=== PATIENT | female | born 1960 | race Caucasian/White ===

== ENCOUNTER 2017-05-23 13:36 | Emergency (ER) | payer OTHER ==
[2017-05-23] MEDS ORDERED: Ondansetron HCl/PF 4 MG/2 ML Vial ONE ×2 (15:40→15:41)
--- NOTE | 2017-05-23 15:42 | RAD ---
EXAM: TWO VIEW SOFT TISSUE NECK 05/23/17 HISTORY: Patient was eating meat and felt a sensation of food getting stuck. Sensation has since passed. COMPARISON: None. FINDINGS: Two views soft tissue neck does not demonstrate prevertebral soft tissue swelling. Calcification of t hyroid cartilage noted. There is a punctate calcification at the C3 level, which appears to be anteri or to the esophagus and may represent a soft tissue calcification. No radiopaque foreign bodies in th e esophagus/aerodigestive tract. IMPRESSION: No evidence of a radiopaque foreign body. Results of the study discussed with Dr. Hicmkan, 05/23/17 kate agosto 3:35 p.m. Code CR POS: QUIANA
== END 2017-05-23 16:42 | disposition home or self-care (01) ==
LOC: ERS 13:36
DX: T17.228A Food in pharynx causing other injury, initial encounter (principal); E11.9 Type 2 diabetes mellitus without complications; I10 Essential (primary) hypertension; F32.9 Major depressive disorder, single episode, unspecified
CPT/HCPCS: 70360; 96374; 96375; J1610; J2405

== ENCOUNTER 2018-02-10 09:06 | Outpatient (CLI) | payer OTHER | END 2018-02-10 09:07 | disposition home or self-care (01) | LOC: BICMAMMO 09:06 | PROVIDERS: ATTEND Family Medicine | DX: Z12.31 Encounter for screening mammogram for malignant neoplasm of breast (principal) | CPT/HCPCS: 77063; 77067 ==

== ENCOUNTER 2018-05-12 08:09 | Outpatient (CLI) | payer OTHER ==
[2018-05-12 09:13] LABS: Hemoglobin 13.8 g/dL (12.0-16.0); Mean Corpuscular HGB CONC 31.4 g/dL (32.0-36.0); Mean Corpuscular Hemoglobin 27.8 pg (27.0-31.0); Mean Corpuscular Volume 88.7 fL (78.0-98.0); Mean Platelet Volume 7.5 fL (7.4-10.4); Platelet Count 281 thou/uL (130-400); RBC Distribution Width 12.6 % (11.5-14.5); Red Blood Cell (RBC) Count 4.97 mill/uL (4.20-5.40); White Blood Cell (WBC) Count 6.4 thou/uL (4.8-10.8)
== END 2018-05-12 08:10 | disposition home or self-care (01) ==
LOC: LABBT 08:09
PROVIDERS: ATTEND Orthopaedic Surgery
DX: Z01.812 Encounter for preprocedural laboratory examination (principal); G56.02 Carpal tunnel syndrome, left upper limb; G56.22 Lesion of ulnar nerve, left upper limb
CPT/HCPCS: 85027

== ENCOUNTER 2018-05-14 05:43 | Day surgery (SDC) | payer OTHER ==
[2018-05-14] MEDS ORDERED: CEFAZOLIN 2 GM/50 ML BAG ONE (06:32)
[2018-05-14] MEDS ORDERED: Midazolam HCl 2 mg/2 ml Vial ONE (06:43)
[2018-05-14] MEDS ORDERED: Fentanyl 100 MCG/2 ML VIAL ONE ×4 (06:43→09:04)
[2018-05-14] MEDS ORDERED: Lidocaine 1% w/Epinephrine 1:200K 30 ML VIAL ONE (06:54)
--- NOTE | 2018-05-14 07:12 | HP ---
CHIEF COMPLAINT: Left wrist and elbow numbness and tingling. HISTORY OF PRESENT ILLNESS: Ms. Haynes is a pleasant 58-year-old female who is right hand dominant. She has a history of right carpal tunnel release. The patient is RHD. She administrative assist. The patient has pain in her small and ring fingers for about 7 years, progressively getting worse. PAST MEDICAL HISTORY: Headache, tenderness, carpal tunnel surgery, cholelithiasis, gastroesophageal reflux, depression, Staph infections, diabetes. PAST SURGICAL HISTORY: Tubal, carpal tunnel release, lap for ovarian cyst, appendectomy, cholecystectomy. MEDICATIONS: Atorvastatin, Yadira, Zulema-D, glucosamine, metformin, multivitamins, Prevagen, telmisartan and verapamil. ALLERGIES: VERSED. SOCIAL HISTORY: Occasional alcohol, no drug use, no history of smoking. The patient works for a [employer]. PHYSICAL EXAMINATION: GENERAL: Alert female in no acute distress, resting comfortably in bed. LEFT WRIST: The patient shows no significant having open wounds. Full range of motion. The patient has strengths, positive Tinel's at the carpal tunnel, positive Tinel's at the elbow. The patient has sensation diminished in the median and ulnar distributions. She has no wounds. She has nerve conduction studies positive for carpal tunnel and cubital tunnel. IMPRESSION: left Carpal tunnel, cubital tunnel. ASSESSMENT AND PLAN: The patient will be taken to the OR for open carpal tunnel and cubital tunnel release. I discussed with patient the risks and benefits of surgery to include pain, scar, bleeding, infection, damage to vital structures to include nerves, arteries and tendons, decreased range of motion or strength, incomplete resolution of symptoms, loss of life or limb. She understands risks and benefits. The patient will be taken back to the operating suite for open carpal tunnel and cubital tunnel release. Will place her in a long arm splint postop. BALJEET
[2018-05-14] MEDS ORDERED: Promethazine HCl 25 MG/ML VIAL IM/IV PRN (08:44)
[2018-05-14] MEDS ORDERED: Non-Formulary Medication 1 EACH PO PRN (08:44)
[2018-05-14] MEDS ORDERED: Ondansetron HCl/PF 4 MG/2 ML Vial IVP PRN (08:44)
[2018-05-14] MEDS ORDERED: Ketorolac Tromethamine 30 MG/ML VIAL ONE (09:11)
--- NOTE | 2018-05-14 09:21 | OP ---
DATE OF PROCEDURE: 05/14/2018 PREOPERATIVE DIAGNOSES: 1. Left cubital tunnel syndrome. 2. Left carpal tunnel syndrome. POSTOPERATIVE DIAGNOSES: 1. Left cubital tunnel syndrome. 2. Left carpal tunnel syndrome. PROCEDURE PERFORMED: 1. Left open cubital tunnel release. 2. Left open carpal tunnel release. 3. Long arm splint. STAFF: Alirio Boyd M.D. RESEARCH ATTORNEY: None. ANESTHESIA: Adams. The patient received LMA with 18 mL of 1% lidocaine with epinephrine. ESTIMATED BLOOD LOSS: 20 mL. TOURNIQUET TIME: 31 minutes at 250 mmHg. ANTIBIOTICS: Ancef 2 grams. COMPLICATIONS: None. HISTORY OF PRESENT ILLNESS: Ms. Haynes is a 58-year-old female who presented to me. She is right hand dominant, she is presenting with a nerve conduction study positive for cubital tunnel and carpal tunn el syndrome. The patient had failed conservative measures and desired operative release. I discusse d with the patient the risks and benefits of surgery to include pain, scar, bleeding, infection, jose enrique ge to vital structures, decreased range of motion or strength, continued pain despite surgical dimens ion, damage to nerves, loss of life or limb, decreased range of motion, function or strength. She un derstood these risks and benefits and elected to proceed. PROCEDURE IN DETAIL: Timeout was performed designating the patient's left upper extremity as the ope rative site based on sight, consents, and markings. After timeout, the patient's left upper extremit y was prepped and draped in sterile fashion. Incision made over the patient's medial epicondyle and the olecranon down through skin. Dissection was made down to the triceps. We then exposed and found the ulnar nerve from proximal to distal tract. There was an anconeus epitrochlearis muscle that was transected which was likely the culprit of her symptoms. After that we released it distally through the patient's FCU, ensuring there was proximally and distally dissected, ensured that it was release d. It showed no signs of compression. We then washed, I closed with 2-0 and 3-0 nylon. We then mov ed to the hand. We pulled the hand out. Based on Mujica's cardinal line in the fourth ray made a di ssection down through skin just distal to the proximal crease down through skin through the fascia th rough the palmaris brevis down to the transverse carpal ligament. The patient had a complete release of the nerve. I saw it throughout its course. We then washed, let the tourniquet down, controlled bleeding, closed with 4-0 nylon, injected 4 mL of lidocaine 1% epinephrine into the hand. I injected 14 into the elbow. We placed the patient in a long arm splint. The patient will be sent home. Follow up in 10-14 days, remove the splint in 7 days. She has Leola for pain relief.
[2018-05-14] MEDS ORDERED: Ketorolac Tromethamine 30 MG/ML VIAL IM/IV PRN (09:27)
[2018-05-14] MEDS ORDERED: HYDROcodone/Acetaminophen 5/325 mg Tablet ONE ×2 (09:59→10:11)
== END 2018-05-14 11:45 | disposition home or self-care (01) ==
LOC: SDC 05:43
PROVIDERS: ATTEND Orthopaedic Surgery
PROC: 01N40ZZ Release Ulnar Nerve, Open Approach (ICD-10-PCS; principal; 2018-05-14)
PROC: 01N50ZZ Release Median Nerve, Open Approach (ICD-10-PCS; principal; 2018-05-14)
DX: G56.22 Lesion of ulnar nerve, left upper limb (principal); G56.02 Carpal tunnel syndrome, left upper limb; F32.9 Major depressive disorder, single episode, unspecified; E11.9 Type 2 diabetes mellitus without complications; K21.9 Gastro-esophageal reflux disease without esophagitis; Z79.84 Long term (current) use of oral hypoglycemic drugs; Z79.899 Other long term (current) drug therapy; Z88.8 Allergy status to other drugs, medicaments and biological substances; Z98.890 Other specified postprocedural states
CPT/HCPCS: 96374; 96375; J1885; J2250; J3010

== ENCOUNTER 2019-02-19 08:06 | Outpatient (CLI) | payer OTHER ==
--- NOTE | 2019-02-23 06:46 | MMO ---
Bilateral MAMMO Bilat Screen [facility]. CLINICAL HISTORY: Patient is 58 years old and is seen for screening. The patient has no family history of breast cancer. The patient has no personal history of cancer. VIEWS: The views performed were: bilateral craniocaudal with tomosynthesis and bilateral mediolateral oblique with tomosynthesis. FILMS COMPARED: The present examination has been compared to prior imaging studies performed at [facility] on 12/06/2014, 12/27/2015, 02/06/2017 and 02/10/2018. MAMMOGRAM FINDINGS: The breasts are heterogeneously dense, which could obscure a lesion on mammography. There are benign appearing calcifications seen in both breasts. There are no suspicious masses, suspicious calcifications, or new areas of architectural distortion. IMPRESSION: THERE IS NO MAMMOGRAPHIC EVIDENCE OF MALIGNANCY. A ROUTINE FOLLOW-UP MAMMOGRAM IN 1 YEAR IS RECOMMENDED. THE RESULTS OF THIS EXAM WERE SENT TO THE PATIENT. ACR BI-RADS Category 2 - Benign finding MAMMOGRAPHY NOTE: 1. A negative mammogram report should not delay a biopsy if a dominant of clinically suspicious mass is present. 2. Approximately 10% to 15% of breast cancers are not detected by mammography. 3. Adenosis and dense breasts may obscure an underlying neoplasm. Reported by: TRAN LEIJA MD Electonically Signed: [id number]
== END 2019-02-19 08:07 | disposition home or self-care (01) ==
LOC: BICMAMMO 08:06
PROVIDERS: ATTEND Family Medicine
DX: Z12.31 Encounter for screening mammogram for malignant neoplasm of breast (principal)
CPT/HCPCS: 77063; 77067

== ENCOUNTER 2020-03-29 07:47 | Outpatient (CLI) | payer OTHER ==
--- NOTE | 2020-03-29 08:23 | MMO ---
Bilateral MAMMO Bilat Screen [facility] CLINICAL HISTORY: Patient is 59 years old and is seen for screening. The patient has no family history of breast cancer. The patient has no personal history of cancer. VIEWS: The views performed were: bilateral craniocaudal with tomosynthesis and bilateral mediolateral oblique with tomosynthesis. FILMS COMPARED: The present examination has been compared to prior imaging studies performed at [facility] on 12/27/2015, 02/06/2017, 02/10/2018 and 02/19/2019. This study has been interpreted with the assistance of computer-aided detection. MAMMOGRAM FINDINGS: The breasts are heterogeneously dense, which could obscure a lesion on mammography. There are no suspicious masses, suspicious calcifications, or new areas of architectural distortion. IMPRESSION: THERE IS NO MAMMOGRAPHIC EVIDENCE OF MALIGNANCY. A ROUTINE FOLLOW-UP MAMMOGRAM IN 1 YEAR IS RECOMMENDED. THE RESULTS OF THIS EXAM WERE SENT TO THE PATIENT. ACR BI-RADS Category 1 - Negative MAMMOGRAPHY NOTE: 1. A negative mammogram report should not delay a biopsy if a dominant of clinically suspicious mass is present. 2. Approximately 10% to 15% of breast cancers are not detected by mammography. 3. Adenosis and dense breasts may obscure an underlying neoplasm. Reported by: TIMUR LEE MD Electonically Signed: [id number]
== END 2020-03-29 07:48 | disposition home or self-care (01) ==
LOC: BICMAMMO 07:47
PROVIDERS: ATTEND Family Medicine
DX: Z12.31 Encounter for screening mammogram for malignant neoplasm of breast (principal)
CPT/HCPCS: 77063; 77067

== ENCOUNTER 2020-10-29 16:30 | Observation (INO) | payer OTHER ==
[2020-10-29 17:32] LABS: #Monocytes 0.7 thou/uL (0.11-0.59); #Neutrophils 4.7 thou/uL (1.40-6.50); %Basophils 0.6 % (0.0-1.0); %Eosinophils 0.5 % (0.0-10.0); %Lymphocytes 26.5 % (21.0-51.0); %Monocytes 9.7 % (0.0-10.0); %Neutrophils 62.7 % (42.0-75.0); Hemoglobin 13.2 g/dL (12.0-16.0); Mean Corpuscular HGB CONC 32.8 g/dL (32.0-36.0); Mean Corpuscular Hemoglobin 29.2 pg (27.0-31.0); Mean Corpuscular Volume 88.9 fL (78.0-98.0); Mean Platelet Volume 7.4 fL (7.4-10.4); Platelet Count 232 thou/uL (130-400); RBC Distribution Width 12.9 % (11.5-14.5); Red Blood Cell (RBC) Count 4.51 mill/uL (4.20-5.40); White Blood Cell (WBC) Count 7.5 thou/uL (4.8-10.8)
[2020-10-29] MEDS ORDERED: Nitroglycerin 2% Ointment 1 INCH/1 GM Packet ONE (17:55)
[2020-10-29] MEDS ORDERED: Aspirin Chewable 81 MG TAB ONE (17:55)
[2020-10-29 17:56] LABS: ALT (SGPT) 13 U/L (8-55); AST (SGOT) 16 U/L (5-34); Albumin 4.3 g/dL (3.4-4.8); Alkaline Phosphatase 73 U/L (40-110); Anion Gap 16 mmol/L (10-20); BUN (Urea Nitrogen) 14 mg/dL (9.8-20.1); Bilirubin, Total 0.5 mg/dL (0.2-1.2); Calc. Creatinine Clearance 0 mL/min (70-130); Calcium 9.1 mg/dL (7.8-10.44); Carbon Dioxide 25 mmol/L (23-31); Chloride 102 mmol/L (98-107); Globulin 2.9 g/dL (2.4-3.5); Glucose 107 mg/dL (80-115); Lipase 16 U/L (8-78); Potassium 4.1 mmol/L (3.5-5.1); Protein, Total 7.2 g/dL (5.8-8.1); Sodium 139 mmol/L (136-145)
[2020-10-29 18:21] LABS: Bacteria/HPF None Seen HPF (None Seen); Bilirubin Negative (Negative); Blood, Urine Negative (Negative); Clarity Clear (Clear); Glucose, Urine (Dipstick) Normal (Negative); Ketone, Urine Negative (Negative); Leukocyte 250 Leu/uL (Negative); Nitrite Negative (Negative); Protein, Urine (Dipstick) Negative (Neg-Trace); RBC/HPF 0-3 HPF (0-3); Specific Gravity, Urine 1.024 (1.002-1.036); Squamous Epithelial 0-3 HPF (0-3); Urobilinogen Normal mg/dL (Less than 2)
[2020-10-29 21:23] LABS: Troponin I 0.034 ng/mL (< 0.028)
[2020-10-29] MEDS ORDERED: Acetaminophen 325 MG TAB PO PRN (22:03)
[2020-10-29] MEDS ORDERED: Ondansetron PF 4 MG/2 ML Vial IVP PRN (22:03)
[2020-10-29] MEDS ORDERED: Ondansetron ODT 4 MG TAB PO PRN (22:03)
[2020-10-29] MEDS ORDERED: HYDROcodone/Acetaminophen 5/325 mg Tablet PO PRN (22:03)
[2020-10-29] MEDS ORDERED: Enoxaparin Sodium 30 MG/0.3 ML SYRINGE SC SCH (22:15)
[2020-10-29] MEDS ORDERED: Enoxaparin Sodium 100 MG/ML SYRINGE SC SCH (22:15)
[2020-10-29 23:03] VITALS: BMI 44.1
[2020-10-30] MEDS: Nitroglycerin 0.4 MG TAB (25 Tab Bottle) SL PRN ×3 (00:02→01:07)
[2020-10-30 01:13] LABS: Troponin I Less than 0.010 ng/mL (< 0.028)
[2020-10-30] MEDS ORDERED: Morphine 4 MG/ML VIAL SLOW IVP PRN ×2 (01:19→01:32)
[2020-10-30 04:57] LABS: SARS-CoV-2 PCR by NAA Not Detected (NotDetected)
[2020-10-30 05:41] LABS: #Eosinphils 0.1 thou/uL (0.0-0.7); #Lymphocytes 2.3 thou/uL (1.20-3.40); #Monocytes 0.7 thou/uL (0.11-0.59); #Neutrophils 3.3 thou/uL (1.40-6.50); %Basophils 0.5 % (0.0-1.0); %Eosinophils 1.4 % (0.0-10.0); %Lymphocytes 36.1 % (21.0-51.0); Hemoglobin 12.6 g/dL (12.0-16.0); Mean Corpuscular HGB CONC 32.4 g/dL (32.0-36.0); Mean Corpuscular Hemoglobin 28.8 pg (27.0-31.0); Mean Corpuscular Volume 88.6 fL (78.0-98.0); Mean Platelet Volume 7.7 fL (7.4-10.4); Platelet Count 207 thou/uL (130-400); RBC Distribution Width 12.8 % (11.5-14.5); Red Blood Cell (RBC) Count 4.37 mill/uL (4.20-5.40); White Blood Cell (WBC) Count 6.4 thou/uL (4.8-10.8)
[2020-10-30 06:00] LABS: Anion Gap 13 mmol/L (10-20); BUN (Urea Nitrogen) 16 mg/dL (9.8-20.1); Calc. Creatinine Clearance 155 mL/min (70-130); Calcium 9.3 mg/dL (7.8-10.44); Carbon Dioxide 23 mmol/L (23-31); Cardiac Risk 3.1 (Less than 4.5); Chloride 104 mmol/L (98-107); Cholesterol 134 mg/dl (< 200 Desired); Glucose 123 mg/dL (80-115); HDL Cholesterol 43 mg/dL (>60 Neg Risk); LDL Cholesterol, Calculated 69 mg/dL; Potassium 3.8 mmol/L (3.5-5.1); Sodium 136 mmol/L (136-145); Triglycerides 112 mg/dL (Less than 150)
[2020-10-30] MEDS ORDERED: Enoxaparin Sodium 30 MG/0.3 ML SYRINGE SC SCH (09:00)
[2020-10-30] MEDS ORDERED: Enoxaparin Sodium 100 MG/ML SYRINGE SC SCH (09:00)
[2020-10-30] MEDS ORDERED: Aspirin Chewable 81 MG TAB PO SCH (09:00)
[2020-10-30] MEDS ORDERED: ADENOSINE 60 MG/20 ML VIAL ONE (10:11)
[2020-10-30] MEDS ORDERED: HumaLOG 300 UNITS/3 ML VIAL SC PRN (10:16)
[2020-10-30] MEDS ORDERED: Dextrose 50% Abboject 50 ML SYRINGE SLOW IVP PRN (10:16)
[2020-10-30] MEDS ORDERED: Dextrose 5% in Water 1,000 ML IV PRN (10:16)
[2020-10-30 12:25] VITALS: TEMP 97.6
[2020-10-30 16:59] VITALS: BP 153/86
[2020-10-30] MEDS ORDERED: Atorvastatin Calcium 20 MG TAB PO SCH (21:00)
[2020-10-30] MEDS ORDERED: Enoxaparin Sodium 120 MG/0.8 ML SYRINGE SC SCH (22:03)
[2020-10-31] MEDS ORDERED: Losartan 25 MG TAB PO SCH (09:00)
[2020-10-31] MEDS ORDERED: Non-Formulary Item 1 EACH (Telmisartan [Telmisartan] 80 MG Tablet) PO SCH (09:00)
== END 2020-10-30 17:59 | disposition home or self-care (01) ==
LOC: ERS 16:30 → 2SW 20:43
PROVIDERS: ADMIT Student in an Organized Health Care Education/Training Program; ATTEND Internal Medicine
DX: R07.9 Chest pain, unspecified (principal); I49.3 Ventricular premature depolarization; I49.8 Other specified cardiac arrhythmias; I10 Essential (primary) hypertension; E11.9 Type 2 diabetes mellitus without complications; R53.83 Other fatigue; I08.2 Rheumatic disorders of both aortic and tricuspid valves; E66.9 Obesity, unspecified; Z68.41 Body mass index [BMI] 40.0-44.9, adult; Z79.84 Long term (current) use of oral hypoglycemic drugs; Z79.899 Other long term (current) drug therapy; Z88.8 Allergy status to other drugs, medicaments and biological substances; Z20.822 Contact with and (suspected) exposure to COVID-19
CPT/HCPCS: 36415; 36416; 71045; 78452; 80048; 80053; 80061; 81003; 81015; 83690; 84484; 85025; 85379; 87635; 93005; 93017; 93306; 94760; 96372; 96374; A9500; G0378; J0153; J1650; J2270; U0003; U0005

== ENCOUNTER 2021-05-11 07:59 | Outpatient (CLI) | payer OTHER | END 2021-05-11 08:00 | disposition home or self-care (01) | LOC: BICMAMMO 07:59 | PROVIDERS: ATTEND Family Medicine | DX: Z12.31 Encounter for screening mammogram for malignant neoplasm of breast (principal) | CPT/HCPCS: 77063; 77067 ==

== ENCOUNTER 2022-07-15 07:49 | Outpatient (CLI) | payer BC | END 2022-07-15 07:50 | disposition home or self-care (01) | LOC: BICMAMMO 07:49 | DX: Z12.31 Encounter for screening mammogram for malignant neoplasm of breast (principal) | CPT/HCPCS: 77063; 77067 ==

== ENCOUNTER 2024-01-01 16:00 | Outpatient (CLI) | payer MEDICARE, OTHER | END 2024-01-01 16:01 | disposition home or self-care (01) | LOC: SLEEPLAB 16:00 | PROVIDERS: ATTEND Family Medicine | DX: G47.33 Obstructive sleep apnea (adult) (pediatric) (principal) | CPT/HCPCS: 95811 ==

== ENCOUNTER 2024-02-26 06:22 | Day surgery (SDC) | payer MEDICARE, OTHER ==
[2024-02-25 09:47] VITALS: BMI 48.5
[2024-02-26] MEDS ORDERED: PROPOFOL 40 ML ONE (08:48)
[2024-02-26] MEDS ORDERED: Lidocaine 1% PF 5 ML VIAL ONE (08:54)
== END 2024-02-26 10:15 | disposition home or self-care (01) ==
LOC: SDC 06:22
PROVIDERS: ATTEND Internal Medicine Gastroenterology
PROC: 0DBL8ZZ Excision of Transverse Colon, Via Natural or Artificial Opening Endoscopic (ICD-10-PCS; principal; 2024-02-26)
DX: Z12.11 Encounter for screening for malignant neoplasm of colon (principal); D12.3 Benign neoplasm of transverse colon; K57.30 Diverticulosis of large intestine without perforation or abscess without bleeding; E11.9 Type 2 diabetes mellitus without complications; E78.5 Hyperlipidemia, unspecified; I10 Essential (primary) hypertension; G47.30 Sleep apnea, unspecified; Z90.49 Acquired absence of other specified parts of digestive tract; Z90.89 Acquired absence of other organs; Z98.890 Other specified postprocedural states; Z79.899 Other long term (current) drug therapy
CPT/HCPCS: 45385; J2704; 88305

== ENCOUNTER 2024-03-05 13:04 | Outpatient (CLI) | payer MEDICARE, OTHER | END 2024-03-05 13:05 | disposition home or self-care (01) | LOC: BICMAMMO 13:04 | PROVIDERS: ATTEND Family Medicine | DX: Z78.0 Asymptomatic menopausal state (principal) | CPT/HCPCS: 77080 ==

== ENCOUNTER 2024-08-13 13:12 | Outpatient (CLI) | payer MEDICARE, OTHER | END 2024-08-13 13:13 | disposition home or self-care (01) | LOC: BICMAMMO 13:12 | PROVIDERS: ATTEND Family Medicine | DX: Z12.31 Encounter for screening mammogram for malignant neoplasm of breast (principal) | CPT/HCPCS: 77063; 77067 ==